=== PATIENT | male | born 1985 | race Asian ===

== ENCOUNTER 2022-03-26 03:22 | Emergency (ER) | payer OTHER ==
[~2022-03-26] VITALS: Ht 167.6 cm; Wt 64.4 kg
[2022-03-26 03:33] VITALS: BP 146/90
--- NOTE | 2022-03-26 03:43 | NUR ---
EKG IN TRIAGE. PT TO LOBBY.
--- NOTE | 2022-03-26 03:43 | NUR ---
[facility] [place] #[id number]
[2022-03-26] MEDS ORDERED: ENOXAPARIN 60 MG/0.6 ML SYR SUBQ ONE (03:50)
[2022-03-26] MEDS ORDERED: MORPHINE SULFATE 4 MG/ML SYR IVP ONE (03:50)
[2022-03-26] MEDS ORDERED: NITROGLYCERIN 2% 1 GM PKT TP ONE (03:50)
--- NOTE | 2022-03-26 04:31 | NUR ---
36 YO M BIB SELF WITH C/C OF 10/10 CHEST [id number] MOSTLY ON LEFT BREAST. STATES EVERYTHING HE DOES CAUSES PAIN. REPORTS SOB WITH CHEST PAIN. STATES HE HAS TAKEN ADVIL EVERYDAY WITH NO RELIEF. [facility] #[id number] HX:HDL REMAA
[2022-03-26 04:34] LABS: BASOPHILS # (AUTO) 0.1 K/uL (0.00-0.22); BASOPHILS % (AUTO) 0.6 % (0.0-2.0); EOSINOPHILS # (AUTO) 0.3 K/uL (0-0.4); EOSINOPHILS % (AUTO) 2.6 % (0.0-4.0); HEMATOCRIT 41.1 % (36-52); HEMOGLOBIN 14.3 g/dL (12.0-18.0); LYMPHOCYTES # (AUTO) 2.5 K/uL (2.0-11.5); LYMPHOCYTES % (AUTO) 24.3 % (20.5-51.1); MEAN CORPUSCULAR HEMOGLOBIN 28 pg (27-31); MEAN CORPUSCULAR HGB CONC 35 g/dL (33-37); MEAN CORPUSCULAR VOLUME 80.9 fL (80-94); MONOCYTES # (AUTO) 0.8 K/uL (0.8-1.0); MONOCYTES % (AUTO) 7.3 % (1.7-9.3); NEUTROPHILS # (AUTO) 6.8 K/uL (1.8-7.7); NEUTROPHILS % (AUTO) 65.2 % (42.2-75.2); PLATELET COUNT (AUTO) 261 K/uL (140-450); RED BLOOD CELL COUNT(AUTO) 5.08 MIL/uL (4.20-6.10); RED CELL DISTRIBUTION WIDTH 12.8 % (11.6-13.7); WHITE BLOOD COUNT (AUTO) 10.5 K/uL (4.8-10.8)
[2022-03-26 04:49] LABS: ALBUMIN 3.8 g/dL (3.4-5.0); CARBON DIOXIDE 26.2 mmol/L (21-32); CREATININE 1.1 mg/dL (0.6-1.3); POTASSIUM 3.2 mmol/L (3.5-5.1); TOTAL BILIRUBIN 0.2 mg/dL (0.0-1.0)
--- NOTE | 2022-03-26 04:56 | NUR ---
PAIN DECREASED TO 7/10
[2022-03-26] MEDS ORDERED: NAPR-54 PO (05:06)
--- NOTE | 2022-03-26 05:14 | NUR ---
[facility] [id number]. PRINCE HYDE EXPLAINED CONDITION AND TREATMENT. PT GIVEN CHANCE TO ANSWER QUESTION. NO QUESTIONS
[2022-03-26 05:35] VITALS: BP 132/84
== END 2022-03-26 05:35 | disposition home or self-care (01) ==
LOC: MED 03:22
DX: R09.1 Pleurisy (principal)
CPT/HCPCS: 36415; 71045; 80053; 83880; 84484; 85025; 85379; 93005; 96372; 96374; 99285; J1650; J2270; Q0092